=== PATIENT | female | born 1940 | race Caucasian/White ===

== ENCOUNTER 2017-02-15 08:31 | Emergency (ER) | payer MEDICARE, BC ==
[~2017-02-15] VITALS: Ht 167.6 cm; Wt 84.1 kg
[2017-02-15 08:33] VITALS: BP 130/75; PULSE 93; TEMP 98.1
[2017-02-15] MEDS ORDERED: HCTZ 25MG TAB25 MG PO (08:43)
[2017-02-15] MEDS ORDERED: CELEXA 20MG20 MG/TAB PO (08:43)
[2017-02-15] MEDS ORDERED: PRESERVISION1 SGL PO (08:44)
[2017-02-15] MEDS ORDERED: STOOL SOFTENER100 M2 PO (08:44)
[2017-02-15] MEDS ORDERED: ULTRAM 50MG TAB50 MG PO (08:44)
[2017-02-15] MEDS ORDERED: CHOLESTEROL COMPLETE PO (08:45)
[2017-02-15] MEDS ORDERED: OSTEO-BI-FLEX 21 TAB PO (08:45)
[2017-02-15] MEDS ORDERED: [UNRECOGNIZED DRUG - OTHER] PO (08:45)
[2017-02-15] MEDS ORDERED: TYLENOL PM EXTR1 TA1 PO (08:45)
== END 2017-02-15 09:37 | disposition home or self-care (01) ==
LOC: COL.ER 08:31
DX: L98.0 Pyogenic granuloma (principal); I10 Essential (primary) hypertension